=== PATIENT | male | born 1995 | race Native Hawaiian/Other Pacific Islander ===

== ENCOUNTER 2017-07-20 14:24 | Emergency (ER) | payer SELFPAY ==
[2017-07-20] MEDS ORDERED: DILAUDID IV ONE (17:02)
--- NOTE | 2017-07-20 17:02 | Emergency Department Report ---
Blank Doc - Documentation Documentation: Patient is a 21-year-old male who is complaining of 2 days of swelling in the left groin. Patient has an abscess present and states that he also has some pain at the scrotum. Patient has redness and brief physical exam in the right thigh extending across the scrotum to the left sided junction of the thigh and scrotum. There is an abscess present. The abscess is just adjacent to the scrotum and is difficult to ascertain whether there is intraoral scrotal involvement. Patient denies any nausea vomiting fever. Patient will be moved to a treatment room for further management.
[2017-07-20 17:38] LABS: Basophils % (Auto) 0.2 % (0.0-1.8); Eosinophils # (Auto) 0.3 K/mm3 (0.0-0.4); Eosinophils % (Auto) 2.3 % (0.0-4.3); Hematocrit 40.6 % (35.5-45.6); Hemoglobin 13.7 gm/dl (11.8-15.2); Lymphocytes # (Auto) 1.8 K/mm3 (1.2-5.4); Mean Corpuscular HGB Conc 34 % (32-34); Mean Corpuscular Hemoglobin 31 pg (28-32); Mean Corpuscular Volume 93 fl (84-94); Monocytes # (Auto) 0.6 K/mm3 (0.0-0.8); Monocytes % (Auto) 5.7 % (0.0-7.3); Platelet Count 151 K/mm3 (140-440); Red Blood Count 4.38 M/mm3 (3.65-5.03); Red Cell Distribution Width 13.9 % (13.2-15.2)
[2017-07-20] MEDS ORDERED: cefTRIAXone 1 GM in NACL 0.9% 20 ML IV ONE (17:43)
[2017-07-20] MEDS ORDERED: ROCEPHIN/NS 1 GM/50 ML 1 GM/50 ML BAG IV ONE (17:43)
[2017-07-20 17:44] LABS: BUN/Creatinine Ratio 19; Blood Urea Nitrogen 13 mg/dL (9-20); Calcium 8.8 mg/dL (8.4-10.2); Hemolysis Index 10
[2017-07-20] MEDS ORDERED: VIBRAMYCIN PO ONE (17:51)
[2017-07-20] MEDS ORDERED: ZITHROMAX PO ONE (17:53)
[2017-07-20] MEDS ORDERED: SUBLIMAZE IV ONE (17:54)
[2017-07-20] MEDS ORDERED: ZOFRAN IV ONE (17:54)
[2017-07-20 18:14] LABS: Bilirubin,Urine NEG (Negative); Blood,Urine NEG (Negative); Color,Urine Yellow (Yellow); Mucus,Urine FEW /HPF; Protein,Urine <15 mg/dL mg/dL (Negative); Urobilinogen,Urine < 2.0 mg/dL (<2.0)
--- NOTE | 2017-07-20 19:01 | Ultrasound Report ---
FINAL REPORT EXAM: US TESTICULAR DOPPLER COMP HISTORY: perineal/lower scrotal infection TECHNIQUE: Ultrasound evaluation of the scrotum and testicles PRIORS: None. FINDINGS: Bilateral testicular parenchymal echotexture is homogenous without solid or cystic mass. Testicular size is within normal limits and symmetric bilaterally. Right testicle size: 4.9 x 1.8 x 3.1 cm Left testicle size: 4.8 x 2.1 x 3.0 cm Color Doppler evaluation manifests bilateral testicular parenchymal blood flow suggesting against torsion. Epididymis: No hyperemia or enlargement. 5 mm nonspecific hypodense focus is slightly lobulated in the left epididymal head. This may be an atypical spermatocele or small cluster of spermatoceles. Varicocele:None Hydrocele: None Irregularly marginated nonspecific hypoechoic region is noted in the inferior left scrotal wall with adjacent hyperemia. This may be region of edema, inflammation, infection, and/or abscess. This region measures 23 x 17 x 41 mm. IMPRESSION: No sonographic evidence of testicular pathology Left epididymal head lobulated hypoechoic focus may be an atypical spermatocele or small spermatocele cluster Hypoechoic lesion with hyperemia in the inferior left scrotum may be edema, inflammation, cellulitis, and/or abscess
--- NOTE | 2017-07-20 19:31 | Cat Scan Report ---
FINAL REPORT EXAM: CT ABDOMEN PELVIS W CON HISTORY: abscess near scrotum and perineum. evaluate depth TECHNIQUE: Dynamic helical CT scan through the abdomen and pelvis during and again after intravenous injection of iodinated contrast. Images are reconstructed in the sagittal and coronal planes. Oral contrast was not given. PRIORS: Testicular ultrasound performed earlier on the same day FINDINGS: The lung bases are clear. There is edema and swelling of left scrotum. The left scrotum was not entirely included in the field of view. The abnormality terminates approximately 5 cm distal (inferior) to the external inguinal ring. There are several mildly enlarged left inguinal lymph nodes. The liver, gallbladder, pancreas, spleen and adrenal glands appear normal. The kidneys appear normal. The pelvic organs appear grossly normal. The stomach appears grossly within normal limits. There are no abnormally dilated loops of bowel or acute inflammatory changes. A normal-appearing appendix is identified. The abdominal aorta has a normal diameter. The bones and subcutaneous soft tissues are unremarkable for age. IMPRESSION: The inflammatory process in the left hemiscrotum is confined to the scrotum. The scrotum was not entirely included in the scan range. Otherwise, no acute findings in the abdomen/pelvis
--- NOTE | 2017-07-20 21:18 | Emergency Department Report ---
HPI - General Chief Complaint: Skin/Abscess/Foreign Body Time Seen by Provider: 07/20/17 16:58 - HPI HPI: The patient is a 21-year-old male who presents for evaluation of groin pain. The patient reports months of nodules in the groin and perirectal area. He reports ulceration of nodules in moderate in severity pain in the past week, stinging and burning in quality, exacerbated with rubbing of the skin to other skin. The patient denies fever, chills, night sweats, diarrhea, blood in the stool, dark tarry stool, dysuria, hematuria, flank pain, genital discharge, inability to pass flatus. ED Past Medical Hx - Past Medical History Previous Medical History?: No - Surgical History Past Surgical History?: No - Social History Smoking Status: Current Every Day Smoker Substance Use Type: Alcohol, Marijuana - Medications Home Medications: Home Medications Medication Instructions Recorded Confirmed Last Taken Type Cephalexin [Keflex] 500 mg PO QID #30 capsule 07/20/17 Unknown Rx Doxycycline Hyclate [Doxycycline 100 mg PO BID #20 tab 07/20/17 Unknown Rx Hyclate TAB] HYDROcodone/APAP 7.5-325 [[place] 1 each PO Q8HR PRN #20 tablet 07/20/17 Unknown Rx 7.5-325 mg TAB] ED Review of Systems ROS: Stated complaint: INFECTION Other details as noted in HPI Constitutional: denies: fever ENT: denies: throat or neck pain Respiratory: denies: cough, shortness of breath Cardiovascular: denies: chest pain Endocrine: denies unexplained weight loss or gain Gastrointestinal: denies: abdominal pain, nausea Genitourinary: reports groin pain and ulcer denies: dysuria Musculoskeletal: denies: leg swelling Skin: denies: rash Neurological: denies: headache Hematological/Lymphatic: denies: easy bleeding or easy bruising Psych: denies sadness or hopelessness Physical Exam - Physical Exam Vital Signs: Vital Signs 07/20/17 07/20/17 07/20/17 15:06 17:17 17:18 Temperature 99.1 F Pulse Rate 83 Respiratory 16 18 Rate Blood Pressure 112/58 O2 Sat by Pulse 100 99 Oximetry 07/20/17 07/20/17 07/20/17 17:31 17:42 19:00 Temperature Pulse Rate 67 66 Respiratory 11 L 15 13 Rate Blood Pressure 114/66 108/62 O2 Sat by Pulse 97 98 99 Oximetry Physical Exam: General: well-nourished, well-developed, no acute distress Head: Normocephalic, atraumatic Eyes: normal sclera ENT: Mucous membranes are pink and moist Neck: trachea midline, neck supple, No neck stiffness, no cervical adenopathy Respiratory: Breath sounds equal bilaterally, no wheezing, rales, or rhonchi Cardio: S1 and S2 present, no murmurs, rubs, gallops, capillary refill is brisk Abdomen: Normoactive bowel sounds, soft abdomen, no tenderness Chest WALL/Back: No tenderness to palpation of the chest wall, no CVA tenderness with percussion : multiple bilateral and infracrotal ulcer present, tender to palpation, no purulent drainage or crepitis Musc: No pitting edema Skin: No rash Neuro: no facial drooping, normal speech Psych: Normal affect ED Course Vital Signs 07/20/17 07/20/17 07/20/17 15:06 17:17 17:18 Temperature 99.1 F Pulse Rate 83 Respiratory 16 18 Rate Blood Pressure 112/58 O2 Sat by Pulse 100 99 Oximetry 07/20/17 07/20/17 07/20/17 17:31 17:42 19:00 Temperature Pulse Rate 67 66 Respiratory 11 L 15 13 Rate Blood Pressure 114/66 108/62 O2 Sat by Pulse 97 98 99 Oximetry ED Medical Decision Making - Lab Data Result diagrams: 07/20/17 17:24 07/20/17 17:24 - Medical Decision Making The patient was seen and examined by myself. The patient is placed on a radiographer cardiac catheterization and continuous pulse ox. On initial evaluation, the patient was found to be in no distress. Evaluation orders are placed. IV access is established and the patient is given 1 L normal saline fluid bolus and Zofran for nausea, and IV analgesic for pain. Lab results were non-concerning including WBC, hemoglobin, hematocrit, electrolytes, renal function, and urinalysis. The patient was given IV Rocephin, 1 g of azithromycin, and by mouth doxycycline for treatment of his cellulitis. CT scan of the abdomen and pelvis is negative for abscess. Ultrasound of the testicles and scrotum is also negative for abscess. The general surgeon Dr. Garcia presented to the emergency department and evaluated the patient. He shared that the patient's exam findings are consistent with hidradenitis suppurative of the groin. He stated that the patient's ultrasound was negative for abscess, that the patient is stable for antibiotics and outpatient follow- up with him in his office. The patient was reevaluated and reported that their symptoms were markedly improved. The patient is stable for discharge with outpatient follow-up. The patient is given follow-up and return instructions. The patient expressed understanding and agreed with the plan. The patient is discharged in stable condition. Critical care attestation.: If time is entered above; I have spent that time in minutes in the direct care of this critically ill patient, excluding procedure time. ED Disposition Clinical Impression: Hidradenitis suppurativa, Bilateral groin pain, Cellulitis, scrotum Disposition: DC- TO HOME OR SELFCARE Is pt being admited?: No Does the pt Need Aspirin: No Condition: Stable Instructions: Cellulitis (ED) Referrals: ROBIN GARCIA MD [Staff Physician] - 3-5 Days Time of Disposition: 21:13
[2017-07-20 21:35] VITALS: BP 110/64
== END 2017-07-20 21:30 | disposition home or self-care (01) ==
LOC: ED 14:24
DX: N49.2 Inflammatory disorders of scrotum (principal); L73.2 Hidradenitis suppurativa; R10.31 Right lower quadrant pain; R10.32 Left lower quadrant pain; F17.200 Nicotine dependence, unspecified, uncomplicated; F12.10 Cannabis abuse, uncomplicated; Z88.0 Allergy status to penicillin
CPT/HCPCS: 36415; 74177; 80048; 81001; 85025; 93975; 96365; 96375; 99284; J0696; J1170; J2405; J3010; Q9967